=== PATIENT | female | born 1965 | race Caucasian/White ===

== ENCOUNTER 2016-06-19 23:26 | Emergency (ER) | payer OTHER ==
[~2016-06-19 23:26] MED LIST: ALBUTEROL17 G1 IH; BACLOFEN10 MG; BACLOFEN10 MG PO; BUSPAR PO; CELEBREX PO; CELEXA PO; FLEXERIL; FLEXERIL PO; FLEXERIL10 MG; FLEXERIL10 MG PO; IBUPROFEN; LORTAB 7.5-3251 EACH PO; LORTAB 7.51 TAB; MEDROL4 MG/DOSE- PO; NAPROSYN500 MG; NAPROSYN500 MG PO; NAPROXEN PO; ZITHROMAX1 G/PKT PO
== END 2016-06-19 23:28 | disposition home or self-care (01) ==
LOC: CFTX 23:26
DX: S10.93XA Contusion of unspecified part of neck, initial encounter (principal); F17.210 Nicotine dependence, cigarettes, uncomplicated; Z88.0 Allergy status to penicillin; Z88.2 Allergy status to sulfonamides; Z88.5 Allergy status to narcotic agent; Z88.6 Allergy status to analgesic agent; X58.XXXA Exposure to other specified factors, initial encounter; Y92.89 Other specified places as the place of occurrence of the external cause
CPT/HCPCS: 99282

== ENCOUNTER 2016-07-28 16:45 | Emergency (ER) | payer OTHER ==
--- NOTE | ~2016-07-28 | CT2 ---
[facility] A Service of [facility] RADIOLOGY TEXT RESULTS PATIENT: JACINTO SMITH LOCATION: [facility] : 65 UNIT #: [id number] AGE: [address]: Oni Rose MD SEX: F ORDER DR: [id number] [facility] [address] [place], [place] [address] [id number] E MR#: [id number] Acc #: [id number] NAME: JACINTO SMITH. : 1965 SEX: F STUDY DATE/TIME: 07/28/2016 18:31 UNIT: [facility] ROOM: STUDY DESCRIPTION: CT Abd and Pelv W Cont Attending Physician: Oni Rose M.D. Ordering Physician: Oni Rose M.D. Primary Care Physician: Mary Frias A.P.R.N. MEDICAL IMAGING REPORT This report is preliminary unless electronic signature is present EXAM CT abdomen and pelvis with contrast HISTORY Abdominal pain x1 week, right-sided pain below ribs, history of cholecystectomy. FINDINGS Axial images performed through the abdomen and pelvis following IV contrast. Multiplanar reconstructed images reviewed at a workstation. This CT exam was performed with one or more of the following radiation dose reduction techniques: Automatic exposure control, adjustment of mA and/or kV according to patient size, and iterative reconstruction. ABDOMEN: Lung bases unremarkable. Liver, spleen unremarkable. The gallbladder surgically absent. Pancreas, kidneys and adrenal glands unremarkable. No free air or free fluid. The visualized GI tract remarkable for mild increased small bowel fluid but no significant distension. Retroperitoneum unremarkable except for mild atherosclerotic changes. PELVIS: Bladder, uterus and adnexa appear normal. Osseous structures and soft tissues appear normal. IMPRESSION No acute intraabdominal or intrapelvic pathology identified. There may be minimal increase in small bowel fluid, which could be seen with mild enteritis but this represents a subjective finding. Dictated by... Hernán Bone M.D. [facility] A Service of [facility] RADIOLOGY TEXT RESULTS PATIENT: JACINTO SMITH LOCATION: [facility] : 65 UNIT #: [id number] AGE: [address]: Oni Rose MD SEX: F ORDER DR: THIS IS AN ELECTRONICALLY VERIFIED REPORT Hernán oBne M.D. at 07/29/2016 6:36 PM Yosef TD: 07/28/2016 22:49 JOB #: [id number] MEDICAL IMAGING REPORT Page 1 of 1 COPY
[2016-07-28 17:19] LABS: URINE SOURCE CLEAN CATCH
[2016-07-28 17:51] LABS: URINE APPEARANCE CLOUDY; URINE BILIRUBIN NEG (NEG); URINE BLOOD NEG (NEG); URINE COLOR YELLOW; URINE GLUCOSE NEG (NEG); URINE KETONE NEG (NEG); URINE LEUKOCYTE ESTERASE TRACE (NEG); URINE NITRATE POS (NEG); URINE PH 5.5 (5-8); URINE PROTEIN NEG (NEG); URINE SPECIFIC GRAVITY 1.023 (1.003-1.035)
[2016-07-28 17:54] LABS: BASOPHIL# 0.1 X10e3 (0-0.3); BASOPHIL% 0.4 % (0-2.5); DIFF IND NO; EOSINOPHIL# 0.2 X10e3 (0-0.7); EOSINOPHIL% 1.4 % (0.0-7.0); HEMOGLOBIN 14.2 gm/dL (12.0-16.0); LYMPHOCYTE# 2.7 X10e3 (1.0-3.5); LYMPHOCYTE% 18.3 % (17.0-45.0); MEAN CELL VOLUME 86.6 FL (83-96); MEAN CORPUSCULAR HGB CONC 32.4 g/dL (30-36); MEAN PLATELET VOLUME 7.1 FL (6.5-11.5); MONOCYTE# 1.3 X10e3 (0-1.0); MONOCYTE% 8.5 % (3.0-12.0); NEUTROPHIL# 10.7 X10e3 (1.5-7.1); NEUTROPHIL% 71.4 % (40-75); PLATELET COUNT 484 X10e3 (140-420); RED BLOOD COUNT 5.08 X10e (3.90-5.30); RED CELL DISTRIBUTION WIDTH 13.5 % (11.0-15.5)
[2016-07-28 17:56] LABS: CULTURE INDICATED? YES; URINE BACTERIA AUWI 4+ (NEGATIVE); URINE SQUAMOUS EPITHELIAL CELL FEW /[HPF]
[2016-07-28 18:06] LABS: ALBUMIN SERUM 4.3 g/dL (3.5-5.0); BILIRUBIN, DIRECT 0.1 mg/dL (0.0-0.2); BILIRUBIN,INDIRECT 0.8 mg/dL (0.0-0.9); BILIRUBIN,TOTAL 0.9 mg/dL (0.2-2.0); BUN/CREATININE RATIO 21.42; CALCIUM SERUM 9.7 mg/dL (8.4-10.2); CREATININE SERUM 0.7 mg/dL (0.6-1.4); POTASSIUM 3.8 mmol/L (3.5-5.1); PROTEIN TOTAL SERUM 7.6 g/dL (6.0-8.3)
== END 2016-07-28 19:36 | disposition home or self-care (01) ==
LOC: CED 16:45
PROVIDERS: Emergency Medicine
DX: N30.00 Acute cystitis without hematuria (principal); F17.200 Nicotine dependence, unspecified, uncomplicated; Z90.49 Acquired absence of other specified parts of digestive tract
CPT/HCPCS: 36415; 74177; 80048; 80076; 81003; 82150; 83690; 85025; 87086; 87088; 87186; 96374; 99284; J2550; Q9967

== ENCOUNTER 2016-12-06 16:45 | Emergency (ER) | payer OTHER ==
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
[2016-12-06] MEDS ORDERED: NO MEDICATIONS (16:50)
== END 2016-12-06 18:29 | disposition home or self-care (01) ==
LOC: SED 16:45
DX: S20.211A Contusion of right front wall of thorax, initial encounter (principal); S30.0XXA Contusion of lower back and pelvis, initial encounter; M51.37 Other intervertebral disc degeneration, lumbosacral region; Z88.0 Allergy status to penicillin; Z90.49 Acquired absence of other specified parts of digestive tract; F17.210 Nicotine dependence, cigarettes, uncomplicated; Z88.2 Allergy status to sulfonamides; Z88.5 Allergy status to narcotic agent; Z88.6 Allergy status to analgesic agent; W22.8XXA Striking against or struck by other objects, initial encounter; Y92.009 Unspecified place in unspecified non-institutional (private) residence as the place of occurrence of the external cause
CPT/HCPCS: 71250; 72131; 96372; 99284; J1170; J2550